=== PATIENT | female | born 1990 ===

== ENCOUNTER → 2018-09-15 | Outpatient (CLI) | payer BC, OTHER ==
[~2018-09-15] MED LIST: ALBU90OI6 INH
[2018-09-20 00:10] LABS: CHLAMYDIA TRACHOMATIS, NAA Negative (Negative); NEISSERIA GONORRHOEAE, NAA Negative (Negative)
== END | disposition home or self-care (01) ==
LOC: LAB 16:46 → LAB SHORT 16:46
PROVIDERS: Obstetrics & Gynecology
DX: Z36.89 Encounter for other specified antenatal screening (principal)
CPT/HCPCS: 87491; 87591; G0123

== ENCOUNTER → 2018-10-13 | Outpatient (CLI) | payer BC, OTHER ==
[2018-10-25 14:07] LABS: AFP VALUE 35.5 ng/mL (.); DIA VALUE 96.89 pg/mL (.); HCG VALUE 22181 mIU/mL (.); MULTIPLE GESTATION No (.); RACE Caucasian (.); UE3 VALUE 1.52 ng/mL (.)
[2018-10-27 11:07] LABS: AFP MOM 1.12 (.); DIA MOM 0.74 (.); DSR (BY AGE) 1 IN 918 (.); DSR (SECOND TRIMESTER) 1 IN 10000 (.); GEST. AGE ON COLLECTION DATE 17.9 WEEKS (.); GESTAT. AGE BASED ON As provided (.); HCG MOM 1.07 (.); INSULIN DEP DIABETES No (.); MATERNAL AGE AT EDD 27.1 yr (.); OSBR RISK 1 IN 8371 (.); T18 RISK Not increased (.); TEST RESULTS: *Screen Negative* (.); UE3 MOM 1.33 (.); WEIGHT 236 lbs (.)
== END | disposition home or self-care (01) ==
LOC: LAB 10:36 → LAB SHORT 10:36
PROVIDERS: Obstetrics & Gynecology
DX: Z34.00 Encounter for supervision of normal first pregnancy, unspecified trimester (principal)
CPT/HCPCS: 82105; 82677; 84702; 86336

== ENCOUNTER → 2019-02-20 | Outpatient (CLI) | payer BC, OTHER ==
[~2019-02-20] MED LIST changes: +DOCU100 PO; +IBU800 MG PO
== END | disposition home or self-care (01) ==
LOC: LAB 11:06 → LAB SHORT 11:06
DX: Z34.00 Encounter for supervision of normal first pregnancy, unspecified trimester (principal)
CPT/HCPCS: 87081; 87653

== ENCOUNTER 2019-03-23 06:40 | Inpatient (IN) | payer BC, OTHER ==
[~2019-03-23] VITALS: Ht 182.9 cm; Wt 118.0 kg
[~2019-03-23 06:40] MED LIST changes: -DOCU100 PO; -IBU800 MG PO
[2019-03-23 08:58] LABS: BASOPHILS ABSOLUTE AUTO 0.02 K/mm3 (0.00-0.23); BASOPHILS PERCENT AUTO 0 % (0-2); EOSINOPHILS ABSOLUTE AUTO 0.05 K/mm3 (0.00-0.68); EOSINOPHILS PERCENT AUTO 1 % (0-6); Hematocrit 39.9 % (33.0-51.0); Hemoglobin 13.6 g/dL (11.5-16.0); IMMATURE GRAN ABSOLUTE AUTO 0.08 K/mm3 (0.00-0.10); IMMATURE GRAN PERCENT AUTO 1 % (0-1); LYMPHOCYTES ABSOLUTE AUTO 1.25 K/mm3 (0.84-5.20); LYMPHOCYTES PERCENT AUTO 13 % (21-46); MONOCYTES ABSOLUTE AUTO 0.65 K/mm3 (0.16-1.47); MONOCYTES PERCENT AUTO 7 % (4-13); Mean Corpuscular HGB 29.2 pg (26.0-34.0); Mean Corpuscular HGB Conc 34.1 g/dL (31.5-36.5); Mean Corpuscular Volume 86 fL (80-100); Mean Platelet Volume 12.4 fL (9.1-12.4); NEUTROPHILS ABSOLUTE AUTO 7.48 K/mm3 (1.96-9.15); NEUTROPHILS PERCENT AUTO 79 % (41-73); Platelet Count 125 K/mm3 (150-400); RDW Coefficient Variation 13.8 % (11.7-14.2); RDW Standard Deviation 42.6 fL (35.1-46.3); Red Blood Cell Count 4.65 M/mm3 (3.80-5.20); White Blood Cell Count 9.53 K/mm3 (4.00-11.30)
[2019-03-24 15:09] LABS: Hematocrit 33.2 % (33.0-51.0); Hemoglobin 11.4 g/dL (11.5-16.0); Mean Corpuscular HGB 29.9 pg (26.0-34.0); Mean Corpuscular HGB Conc 34.3 g/dL (31.5-36.5); Mean Corpuscular Volume 87 fL (80-100); Mean Platelet Volume 11.9 fL (9.1-12.4); Platelet Count 109 K/mm3 (150-400); RDW Coefficient Variation 13.6 % (11.7-14.2); RDW Standard Deviation 42.6 fL (35.1-46.3); Red Blood Cell Count 3.81 M/mm3 (3.80-5.20); White Blood Cell Count 19.78 K/mm3 (4.00-11.30)
--- NOTE | 2019-03-24 15:23 | NUR ---
LAB WORK PT WBC ELEVATED DR NOTIFIED WILL REPEAT CBC IN AM
[2019-03-25 05:37] LABS: Hematocrit 28.9 % (33.0-51.0); Hemoglobin 9.7 g/dL (11.5-16.0); Mean Corpuscular HGB 29.8 pg (26.0-34.0); Mean Corpuscular HGB Conc 33.6 g/dL (31.5-36.5); Mean Corpuscular Volume 89 fL (80-100); Mean Platelet Volume 12.6 fL (9.1-12.4); Platelet Count 85 K/mm3 (150-400); RDW Coefficient Variation 13.9 % (11.7-14.2); RDW Standard Deviation 45.3 fL (35.1-46.3); Red Blood Cell Count 3.26 M/mm3 (3.80-5.20); White Blood Cell Count 13.18 K/mm3 (4.00-11.30)
--- NOTE | 2019-03-25 08:38 | NUR ---
trash removed from room at this time.
[2019-03-25] MEDS ORDERED: IBU800 MG PO (09:44)
[2019-03-25] MEDS ORDERED: DOCU100 PO (09:44)
== END 2019-03-25 21:15 | disposition home or self-care (01) | DRG 807 ==
LOC: BC 06:40
PROVIDERS: ADMIT Obstetrics & Gynecology
PROC: 3E033VJ Introduction of Other Hormone into Peripheral Vein, Percutaneous Approach (ICD-10-PCS; 2019-03-23)
PROC: 10907ZC Drainage of Amniotic Fluid, Therapeutic from Products of Conception, Via Natural or Artificial Opening (ICD-10-PCS; 2019-03-23)
PROC: 10D07Z6 Extraction of Products of Conception, Vacuum, Via Natural or Artificial Opening (ICD-10-PCS; principal; 2019-03-24)
PROC: 0KQM0ZZ Repair Perineum Muscle, Open Approach (ICD-10-PCS; 2019-03-24)
PROC: 0W8NXZZ Division of Female Perineum, External Approach (ICD-10-PCS; 2019-03-24)
PROC: 3E0R3BZ Introduction of Anesthetic Agent into Spinal Canal, Percutaneous Approach (ICD-10-PCS; 2019-03-24)
DX: O48.0 Post-term pregnancy (principal); Z37.0 Single live birth; Z3A.41 41 weeks gestation of pregnancy; O62.1 Secondary uterine inertia; O75.81 Maternal exhaustion complicating labor and delivery; O70.1 Second degree perineal laceration during delivery; O69.81X0 Labor and delivery complicated by cord around neck, without compression, not applicable or unspecified
CPT/HCPCS: 36415; 51702; 85025; 85027; 90471; J1885; J2001; J2210; J2590; J3010; J7050; J7120

== ENCOUNTER → 2021-06-16 | Outpatient (CLI) | payer BC, OTHER ==
[~2021-06-16] MED LIST changes: +DOCU100 PO; +IBU800 MG PO
== END | disposition home or self-care (01) ==
LOC: LAB 10:22 → LAB SHORT 10:22
PROVIDERS: Obstetrics & Gynecology
DX: Z01.419 Encounter for gynecological examination (general) (routine) without abnormal findings (principal)
CPT/HCPCS: G0123